=== PATIENT | male | born 1965 | race Caucasian/White ===

== ENCOUNTER 2021-06-17 16:02 | Emergency (ER) | payer BC ==
[~2021-06-17] VITALS: Ht 175.3 cm; Wt 85.3 kg
--- NOTE | 2021-06-17 16:02 | NUR ---
BIBA TO BED 2
[2021-06-17 16:05] VITALS: BP 137/84
--- NOTE | 2021-06-17 16:10 | NUR ---
55 YO MALE BIBA FROM [facility] C/O SOB, 3/10 CHEST PAIN, 3/10 RLQ PAIN DURING PROCEDURE OF PUTING BLOCK ONTO R SHOULDER. PATIENTS O2 AT CENTER 92% RA. PAIN 3/10 DESCRIBES SHARP WHILE BREATHING. AT FACILITY PATIENT WAS GIVEN VERSED 2MG, AND 500ML OF LR FLUIDS. IV 20G PLACED ON PATIENTS LEFT HAND AT SURGERY CENTER. BLOOD SUGAR 154. UPON ASSESSMENT PATIENT HAS ABSENT BREATH SOUNDS TO RIGHT U/L LOBES, LEFT DIMINISHED. PATIENT HAS NO LABORED BREATHING AT THIS TIME, PATIENT IS 96% ON RA AT THIS TIME, BS ACTIVE AND NON TENDER TO TOUCH, SKIN DRY AND INTACT. A&OX4, RR 20 EVEN AND UNLABORED. PLACED ON MONITOR, WILL CONTINUE TO MONITOR. PMH: HTN, DM, ELEVATED CHOLESTEROL ALLERGY: CONTRAST DYE
--- NOTE | 2021-06-17 16:55 | NUR ---
ALEX SAMPLE COLLECTED AND WALKED TO LAB.
--- NOTE | 2021-06-17 17:00 | NUR ---
BUFFING WHEEL FORMER AUTOMATIC AT BEDSIDE COLLECTING BLOOD SAMPLES.
[2021-06-17 17:08] LABS: BASOPHILS % (AUTO) 0.4 % (0.0-2.0); EOSINOPHILS % (AUTO) 0.4 % (0.0-4.0); HEMATOCRIT 45.9 % (36-52); HEMOGLOBIN 15.3 g/dL (12.0-18.0); LYMPHOCYTES # (AUTO) 1.6 K/uL (2.0-11.5); LYMPHOCYTES % (AUTO) 26.6 % (20.5-51.1); MEAN CORPUSCULAR HEMOGLOBIN 31 pg (27-31); MEAN CORPUSCULAR HGB CONC 33 g/dL (33-37); MEAN CORPUSCULAR VOLUME 92.6 fL (80-94); MONOCYTES # (AUTO) 0.6 K/uL (0.8-1.0); MONOCYTES % (AUTO) 9.8 % (1.7-9.3); NEUTROPHILS # (AUTO) 3.7 K/uL (1.8-7.7); NEUTROPHILS % (AUTO) 62.8 % (42.2-75.2); PLATELET COUNT (AUTO) 270 K/uL (140-450); RED BLOOD CELL COUNT(AUTO) 4.95 MIL/uL (4.20-6.10); RED CELL DISTRIBUTION WIDTH 13.9 % (11.6-13.7); WHITE BLOOD COUNT (AUTO) 5.8 K/uL (4.8-10.8)
[2021-06-17 17:36] LABS: ALBUMIN 4.2 g/dL (3.4-5.0); ANION GAP 14.3 (8-16); CARBON DIOXIDE 25.3 mmol/L (21-32); CREATININE 0.9 mg/dL (0.6-1.3); POTASSIUM 3.6 mmol/L (3.5-5.1); TOTAL BILIRUBIN 0.4 mg/dL (0.0-1.0)
[2021-06-17] MEDS ORDERED: ASPIRIN 325 MG TAB PO ONE (17:45)
--- NOTE | 2021-06-17 19:23 | NUR ---
REPORT AND CONTINUATION OF CARE GIVEN TO KELI MENDEZ.
[2021-06-17 21:40] VITALS: BP 114/77
--- NOTE | 2021-06-17 21:40 | NUR ---
Patient discharged with v/s stable. Written and verbal after care instructions given and explained. Patient verbalized understanding. Ambulatory with steady gait. All questions addressed prior to discharge. Advised to follow up with PMD.
== END 2021-06-17 21:40 | disposition home or self-care (01) ==
LOC: MED 16:02
DX: R07.9 Chest pain, unspecified (principal); Z20.822 Contact with and (suspected) exposure to COVID-19; R06.02 Shortness of breath; E11.9 Type 2 diabetes mellitus without complications; I10 Essential (primary) hypertension; Z88.8 Allergy status to other drugs, medicaments and biological substances
CPT/HCPCS: 36415; 71045; 80053; 84484; 85025; 85379; 93005; 99285